=== PATIENT | female | born 1995 | race Caucasian/White ===

== ENCOUNTER 2019-09-01 12:07 | Emergency (ER) | payer SELFPAY ==
[~2019-09-01] VITALS: Ht 162.6 cm; Wt 57.2 kg
--- NOTE | 2019-09-01 12:10 | NUR ---
SEEN AND EXAMINED BY .
[2019-09-01] MEDS ORDERED: LORAZEPAM INJ 2 MG/ML VIAL ONE (12:13)
[2019-09-01] MEDS ORDERED: OLANZAPINE 10 MG VIAL IM ONE ×2 (12:13→12:30)
--- NOTE | 2019-09-01 12:21 | NUR ---
[facility] AND [employer] ON RESTRAINTS TO ER BED 12. FOUND IN A PARKING LOT WALKING AROUND HALF NAKED, NO PANTS. BROUGHT IN FOR AGITATION AND WEIRD BEHAVIOR. UNABLE TO GET ANY INFORMATION FROM PT. SHE KEEPS TALKING NON SENSE AND UNABLE TO ANSWER QUESTION. PT WAS PALCED ON RESTRAINTS. MD WAS AT BEDSIDE. ORDERS RECEIVED NOTED AND CARRIED OUT. MEDICATED ORDERED
--- NOTE | 2019-09-01 12:23 | NUR ---
PT IS NOTED TACHYCARDIC ON MONITOR. MD GARNICA
[2019-09-01] MEDS ORDERED: LORAZEPAM INJ 2 MG/ML VIAL IM ONE (12:30)
[2019-09-01 12:43] LABS: BASOPHILS % (AUTO) 0.4 % (0.0-2.0); HEMATOCRIT 39 % (33-45); HEMOGLOBIN 13.1 g/dL (11.5-14.8); LYMPHOCYTES # (AUTO) 2.3 /CMM (0.8-4.8); MEAN CORPUSCULAR HGB CONC 34 g/dl (31.0-36.0); MEAN CORPUSCULAR VOLUME 79 fL (82-100); MONOCYTES # (AUTO) 0.6 /CMM (0.1-1.30); MONOCYTES % (AUTO) 6.5 % (2.0-12.0); NEUTROPHILS # (AUTO) 5.6 /CMM (1.8-8.9); NEUTROPHILS % (AUTO) 65.1 % (43.0-81.0); PLATELET COUNT (AUTO) 409 /CMM (150-450); RED BLOOD CELL COUNT(AUTO) 4.94 MIL/uL (4.0-5.2); WHITE BLOOD COUNT (AUTO) 8.5 K/uL (4.3-11.0)
[2019-09-01 12:50] LABS: CARBON DIOXIDE 27 mmol/L (21-32); CHLORIDE 103 mmol/L (98-107); GLUCOSE 106 mg/dL (74-106); POTASSIUM 3.4 mmol/L (3.5-5.1); SODIUM SERUM 142 mmol/L (136-145); UREA NITROGEN, BLOOD 13 mg/dL (7-18)
[2019-09-01 12:56] LABS: ALANINE AMINOTRANSFERASE 96 U/L (12-78); ALBUMIN 3.5 g/dL (3.4-5.0); ALCOHOL, BLOOD < 3 mg/dL (0-0); ALKALINE PHOSPHATASE 130 U/L (46-116); ASPARTATE AMINOTRANSFERASE 29 U/L (15-37); BILIRUBIN,DIRECT 0.2 mg/dL (0.0-0.2); BILIRUBIN,TOTAL 0.6 mg/dL (0.2-1.0); CALCIUM, SERUM 9.1 mg/dL (8.5-10.1); TOTAL PROTEIN, SERUM 8.1 g/dL (6.4-8.2)
[2019-09-01 12:59] LABS: ACETAMINOPHEN < 2 ug/ml (10-30); SALICYLATE < 2.8 mg/dL (2.8-20.0)
--- NOTE | 2019-09-01 15:45 | NUR ---
PT RESTRAINTS REDUCED TO 1 POINT ON R HAND.
--- NOTE | 2019-09-01 15:47 | NUR ---
PT IS IN BED SLEEPING. NAD NOTED.
--- NOTE | 2019-09-01 17:30 | NUR ---
URINE COLLECTED AND SENT TO LAB
[2019-09-01 17:39] LABS: APPEARANCE,URINE Slightly Cloudy (CLEAR); BILIRUBIN,URINE SMALL (NEGATIVE); BLOOD, URINE Trace-intact Ery/uL (NEGATIVE); KETONES,URINE Negative (NEGATIVE); LEUKOCYTE ESTERASE ,URINE Trace (NEGATIVE); NITRITE, URINE Negative (NEGATIVE); PROTEIN,URINE 30 mg/dl (NEGATIVE); UGLUCOSE Negative (NEGATIVE)
[2019-09-01 17:45] LABS: COLOR,URINE DARK YELLOW (YELLOW)
[2019-09-01 18:02] LABS: BACTERIA,URINE Many /HPF (None Seen); SQUAMOUS EPITHELIAL CELL,UR Rare /HPF (None Seen)
[2019-09-01 18:03] LABS: RBC,URINE 0-2 /HPF (0-2)
[2019-09-01] MEDS ORDERED: POTASSIUM CHLORIDE 20 MEQ TAB.PRT.SR PO ONE ×2 (18:30→18:35)
--- NOTE | 2019-09-01 19:03 | NUR ---
PT PROVIDED WITH FOOD AND WATER.
--- NOTE | 2019-09-01 23:23 | NUR ---
PT IN BED SLEEPING COMFORTABLY. NAD NOTED
--- NOTE | 2019-09-02 00:26 | NUR ---
PT RESTING COMFORTABLY IN BED. VSS. NO ACUTE DISTRESS NOTED. WILL CONTINUE TO MONITOR
--- NOTE | 2019-09-02 01:10 | NUR ---
Patient is awake and alert to self, day, and place. PT requesting to be discharged home. Pt denies si or hi. Pt provided with clothes, food tray, and TAP card. Pt ok to be dischrged per dr Cherry. Patient discharged to home in stable condition. Written and verbal after care instructions given. Patient verbalizes understanding of instruction.
[2019-09-02 05:57] VITALS: BP 120/79
== END 2019-09-02 01:10 | disposition home or self-care (01) ==
LOC: EDBD 12:09 → ER 12:09
DX: F29 Unspecified psychosis not due to a substance or known physiological condition (principal); R45.1 Restlessness and agitation
CPT/HCPCS: 36415; 80048; 80076; 80305; 80307; 80329; 81001; 84702; 85025; 87077; 87086; 87186; 96372 ×2; 99285; G0480; J2060; J3490; 81000-TC